=== PATIENT | female | born 1970 | race Caucasian/White ===

== ENCOUNTER 2022-08-14 05:59 | Inpatient (IN) | payer MEDICAID ==
[~2022-08-14] VITALS: Ht 154.9 cm; Wt 79.2 kg
[2022-08-14 06:02] VITALS: BP_SYST 85
[2022-08-14] MEDS ORDERED: NACL 0.9% 2,000 ML IV ONE (07:15)
[2022-08-14] MEDS ORDERED: KETOROLAC TROMETHAMINE 30 MG VIAL IVP ONE (07:15)
[2022-08-14 10:10] LABS: HEMATOCRIT 36.1 % (36-48); HEMOGLOBIN 12.1 g/dL (12.0-16.0); MEAN CORPUSCULAR HEMOGLOBIN 30 pg (27-31); MEAN CORPUSCULAR HGB CONC 33 % (32-36); MEAN CORPUSCULAR VOLUME 89 fL (79.0-98.0); PLATELET COUNT (AUTO) 250 K/uL (130-430); RED BLOOD CELL COUNT(AUTO) 4.06 MIL/uL (4.2-6.2); RED CELL DISTRIBUTION WIDTH 14.2 % (9.0-15.0); WHITE BLOOD COUNT (AUTO) 18.9 K/uL (4.8-10.8)
[2022-08-14] MEDS ORDERED: cefTRIAXone 1 GM IVPB PREMIX 50 ML IV ONE (10:30)
[2022-08-14 10:32] LABS: CALCIUM 7.3 mg/dL (8.4-11.0); CREATININE 0.87 mg/dL (0.55-1.30)
[2022-08-14 10:37] LABS: ALBUMIN 2.7 g/dL (3.4-4.8); TOTAL BILIRUBIN 0.6 mg/dL (0.0-1.0)
[2022-08-14 10:45] LABS: ATYPICAL LYMPHOCYTES % 0 % (0-0); BAND % (MANUAL) 18 % (0-6); BASOPHILS % (MANUAL) 0 % (0-2); EOSINOPHILS % (MANUAL) 0 % (0-7); LYMPHOCYTES % (MANUAL) 5 % (20-46); MONOCYTES % (MANUAL) 2 % (0-11)
[2022-08-14] MEDS ORDERED: traMADol HCL HCL 50 MG TABLET (ULTRAM) PO ONE (10:45)
[2022-08-14] MEDS ORDERED: ALBMDI INH (12:57)
[2022-08-14] MEDS ORDERED: MONT10TA22 PO (12:57)
[2022-08-14] MEDS ORDERED: LEVO100C4 PO (12:57)
[2022-08-14] MEDS ORDERED: NACL 0.9% 1,000 ML IV ONE ×2 (13:15→19:45)
[2022-08-14] MEDS ORDERED: GABA-531 PO (14:47)
[2022-08-14] MEDS ORDERED: DULO60CA42 PO (14:47)
[2022-08-14] MEDS ORDERED: SER25 PO (14:47)
[2022-08-14] MEDS ORDERED: CYM30 PO (14:47)
[2022-08-14] MEDS ORDERED: ACETAMINOPHEN 500 MG TABLET ONE (15:27)
[2022-08-14] MEDS ORDERED: ACETAMINOPHEN 500 MG TABLET PO ONE ×2 (15:45→20:30)
[2022-08-14] MEDS ORDERED: AZITHROMYCIN 500 MG in NS 250 ML IV ONE (19:30)
[2022-08-14] MEDS ORDERED: AZITHROMYCIN 500 MG/VIAL (ZITHROMAX) IV ONE (19:40)
[2022-08-14 21:50] VITALS: BP_SYST 82
[2022-08-14] MEDS: KCL 20 mEq in D5NS 1000 mL 1,000 ML IV SCH (22:43)
[2022-08-14 22:48] VITALS: BP_SYST 102
[2022-08-14 23:21] VITALS: BP_SYST 130
[2022-08-15] MEDS: LevALBUTEROL HCL 1.25 MG/0.5 ML *CONC.* VIAL.NEB (XOPENEX CONC.) INH SCH ×4 (01:00→20:18)
[2022-08-15 02:01] VITALS: BP_SYST 102
[2022-08-15 04:43] VITALS: BP_SYST 130
[2022-08-15] MEDS: ACETAMINOPHEN 500 MG TABLET PO ONE ×2 (06:30→09:01)
[2022-08-15 08:10] VITALS: BP_SYST 98
[2022-08-15 08:44] LABS: BASOPHILS % (AUTO) 0.2 % (0.0-2.0); EOSINOPHILS % (AUTO) 0.1 % (0.0-4.0); HEMATOCRIT 33.5 % (36-48); HEMOGLOBIN 11.1 g/dL (12.0-16.0); LYMPHOCYTES # (AUTO) 1.2 K/uL (1.0-5.5); LYMPHOCYTES % (AUTO) 8.8 % (20.5-51.5); MEAN CORPUSCULAR HEMOGLOBIN 30 pg (27-31); MEAN CORPUSCULAR HGB CONC 33 % (32-36); MEAN CORPUSCULAR VOLUME 89 fL (79.0-98.0); MONOCYTES # (AUTO) 0.3 K/uL (0.0-1.0); MONOCYTES % (AUTO) 1.9 % (1.7-9.3); NEUTROPHILS # (AUTO) 12.2 K/uL (1.8-7.7); PLATELET COUNT (AUTO) 241 K/uL (130-430); RED BLOOD CELL COUNT(AUTO) 3.77 MIL/uL (4.2-6.2); RED CELL DISTRIBUTION WIDTH 14.5 % (9.0-15.0); WHITE BLOOD COUNT (AUTO) 13.7 K/uL (4.8-10.8)
[2022-08-15] MEDS: cefTRIAXone 1 GM IVPB PREMIX 50 ML IV SCH (08:52)
[2022-08-15] MEDS: ENOXAPARIN SODIUM 40 MG/0.4 ML SYRINGE SUBCUT SCH (08:53)
[2022-08-15] MEDS: KCL 20 mEq in D5NS 1000 mL 1,000 ML IV SCH ×2 (09:03→17:40)
[2022-08-15 09:05] LABS: CALCIUM 7.8 mg/dL (8.4-11.0); CREATININE 0.77 mg/dL (0.55-1.30)
[2022-08-15 09:10] LABS: ALBUMIN 2.3 g/dL (3.4-4.8); TOTAL BILIRUBIN 0.4 mg/dL (0.0-1.0)
[2022-08-15] MEDS ORDERED: MONTELUKAST 10 MG TABLET PO ONE (11:00)
[2022-08-15] MEDS ORDERED: DULoxetine HCL 30 MG CAPSULE.DR (CYMBALTA) PO ONE (11:00)
[2022-08-15] MEDS ORDERED: QUEtiapine FUMARATE 25 MG TABLET PO ONE (11:00)
[2022-08-15] MEDS: SUMAtriptan SUCCINATE 50 MG TABLET PO PRN (12:12)
[2022-08-15 13:47] VITALS: BP_SYST 123
[2022-08-15] MEDS: GABAPENTIN 300 MG CAPSULE PO SCH ×2 (14:41→21:38)
[2022-08-15] MEDS ORDERED: GABAPENTIN 300 MG CAPSULE PO SCH (15:00)
[2022-08-15] MEDS: ACETAMINOPHEN 325 MG TABLET PO PRN ×2 (16:20→21:40)
[2022-08-15 16:36] VITALS: BP_SYST 138
[2022-08-15 20:00] VITALS: BP_SYST 91
[2022-08-15] MEDS ORDERED: AZITHROMYCIN 500 MG/VIAL (ZITHROMAX) IV ONE (21:28)
[2022-08-15] MEDS: AZITHROMYCIN 500 MG in NS 250 ML IV SCH (21:37)
[2022-08-15] MEDS: MONTELUKAST 10 MG TABLET PO SCH (21:38)
[2022-08-15] MEDS: QUEtiapine FUMARATE 25 MG TABLET PO SCH (21:38)
[2022-08-16 00:11] VITALS: BP_SYST 130
[2022-08-16] MEDS: KCL 20 mEq in D5NS 1000 mL 1,000 ML IV SCH ×2 (03:56→17:50)
[2022-08-16] MEDS: LEVOTHYROXINE SODIUM 0.1 MG TABLET PO SCH (06:14)
[2022-08-16] MEDS: ACETAMINOPHEN 325 MG TABLET PO PRN ×2 (06:28→11:30)
[2022-08-16 06:49] LABS: CALCIUM 7.9 mg/dL (8.4-11.0); CREATININE 0.68 mg/dL (0.55-1.30)
[2022-08-16 06:53] LABS: BASOPHILS % (AUTO) 0.4 % (0.0-2.0); EOSINOPHILS # (AUTO) 0.1 K/uL (0.0-0.4); HEMATOCRIT 31.9 % (36-48); HEMOGLOBIN 10.8 g/dL (12.0-16.0); LYMPHOCYTES % (AUTO) 14.1 % (20.5-51.5); MEAN CORPUSCULAR HEMOGLOBIN 30 pg (27-31); MEAN CORPUSCULAR HGB CONC 34 % (32-36); MEAN CORPUSCULAR VOLUME 89 fL (79.0-98.0); MONOCYTES # (AUTO) 0.3 K/uL (0.0-1.0); MONOCYTES % (AUTO) 4.6 % (1.7-9.3); NEUTROPHILS # (AUTO) 5.5 K/uL (1.8-7.7); NEUTROPHILS % (AUTO) 78.9 % (40.0-70.0); PLATELET COUNT (AUTO) 232 K/uL (130-430); RED BLOOD CELL COUNT(AUTO) 3.59 MIL/uL (4.2-6.2); RED CELL DISTRIBUTION WIDTH 14.8 % (9.0-15.0); WHITE BLOOD COUNT (AUTO) 6.9 K/uL (4.8-10.8)
[2022-08-16] MEDS: LevALBUTEROL HCL 1.25 MG/0.5 ML *CONC.* VIAL.NEB (XOPENEX CONC.) INH SCH ×3 (07:00→21:18)
[2022-08-16 08:05] VITALS: BP_SYST 103
[2022-08-16] MEDS: cefTRIAXone 1 GM IVPB PREMIX 50 ML IV SCH (08:31)
[2022-08-16] MEDS: ENOXAPARIN SODIUM 40 MG/0.4 ML SYRINGE SUBCUT SCH (08:32)
[2022-08-16] MEDS: GABAPENTIN 300 MG CAPSULE PO SCH ×3 (08:32→21:37)
[2022-08-16] MEDS: DULoxetine HCL 30 MG CAPSULE.DR (CYMBALTA) PO SCH (08:32)
[2022-08-16] MEDS ORDERED: QUEtiapine FUMARATE 25 MG TABLET PO SCH (09:00)
[2022-08-16] MEDS ORDERED: LEVOTHYROXINE SODIUM 0.1 MG TABLET PO SCH (09:00)
[2022-08-16] MEDS ORDERED: MONTELUKAST 10 MG TABLET PO SCH (09:00)
[2022-08-16 11:53] VITALS: BP_SYST 110
[2022-08-16] MEDS: SUMAtriptan SUCCINATE 50 MG TABLET PO PRN (12:59)
[2022-08-16 15:41] VITALS: BP_SYST 93
[2022-08-16] MEDS ORDERED: FLUTICASONE 500 mCg/SALMETEROL 50 mCg DISKUS W.DEV INH SCH (17:30)
[2022-08-16] MEDS ORDERED: NICOTINE 21 MG/24 HR PATCH.TD24 TD ONE (18:15)
[2022-08-16] MEDS ORDERED: NAPROXEN 250 MG TABLET PO ONE (18:15)
[2022-08-16 18:40] VITALS: BP_SYST 110
[2022-08-16 20:00] VITALS: BP_SYST 94
[2022-08-16] MEDS: BUDESONIDE 0.5 MG/2 ML AMPUL.NEB INH SCH (21:17)
[2022-08-16] MEDS: AZITHROMYCIN 500 MG in NS 250 ML IV SCH (21:37)
[2022-08-16] MEDS: MONTELUKAST 10 MG TABLET PO SCH (21:37)
[2022-08-16] MEDS: QUEtiapine FUMARATE 25 MG TABLET PO SCH (21:38)
[2022-08-17] VITALS: BP_SYST 100
[2022-08-17] MEDS: LevALBUTEROL HCL 1.25 MG/0.5 ML *CONC.* VIAL.NEB (XOPENEX CONC.) INH SCH ×4 (01:00→19:51)
[2022-08-17] MEDS: LEVOTHYROXINE SODIUM 0.1 MG TABLET PO SCH (06:01)
[2022-08-17] MEDS: KCL 20 mEq in D5NS 1000 mL 1,000 ML IV SCH ×3 (06:02→22:33)
[2022-08-17 07:06] LABS: EOSINOPHILS # (AUTO) 0.2 K/uL (0.0-0.4); HEMATOCRIT 31.7 % (36-48); HEMOGLOBIN 10.6 g/dL (12.0-16.0); LYMPHOCYTES # (AUTO) 1.3 K/uL (1.0-5.5); LYMPHOCYTES % (AUTO) 27.8 % (20.5-51.5); MEAN CORPUSCULAR HEMOGLOBIN 30 pg (27-31); MEAN CORPUSCULAR HGB CONC 34 % (32-36); MEAN CORPUSCULAR VOLUME 89 fL (79.0-98.0); MONOCYTES # (AUTO) 0.4 K/uL (0.0-1.0); MONOCYTES % (AUTO) 8.1 % (1.7-9.3); NEUTROPHILS # (AUTO) 2.7 K/uL (1.8-7.7); NEUTROPHILS % (AUTO) 59.1 % (40.0-70.0); PLATELET COUNT (AUTO) 255 K/uL (130-430); RED BLOOD CELL COUNT(AUTO) 3.55 MIL/uL (4.2-6.2); RED CELL DISTRIBUTION WIDTH 14.7 % (9.0-15.0)
[2022-08-17 07:24] LABS: CREATININE 0.59 mg/dL (0.55-1.30)
[2022-08-17 08:18] LABS: WHITE BLOOD COUNT (AUTO) 4.6 K/uL (4.8-10.8)
[2022-08-17] MEDS: BUDESONIDE 0.5 MG/2 ML AMPUL.NEB INH SCH ×2 (08:49→19:52)
[2022-08-17 08:59] VITALS: BP_SYST 100
[2022-08-17] MEDS: cefTRIAXone 1 GM IVPB PREMIX 50 ML IV SCH (09:00)
[2022-08-17] MEDS: GABAPENTIN 300 MG CAPSULE PO SCH ×3 (09:58→22:20)
[2022-08-17] MEDS: NAPROXEN 250 MG TABLET PO SCH ×2 (09:58→17:55)
[2022-08-17] MEDS: DULoxetine HCL 30 MG CAPSULE.DR (CYMBALTA) PO SCH (09:59)
[2022-08-17] MEDS: ENOXAPARIN SODIUM 40 MG/0.4 ML SYRINGE SUBCUT SCH (09:59)
[2022-08-17] MEDS: NICOTINE 21 MG/24 HR PATCH.TD24 TD SCH (09:59)
[2022-08-17 12:00] VITALS: BP_SYST 115
[2022-08-17 15:30] VITALS: BP_SYST 107
[2022-08-17 20:00] VITALS: BP_SYST 107
[2022-08-17 22:20] VITALS: BP_SYST 102
[2022-08-17] MEDS: MONTELUKAST 10 MG TABLET PO SCH (22:20)
[2022-08-17] MEDS: QUEtiapine FUMARATE 25 MG TABLET PO SCH (22:20)
[2022-08-17] MEDS: AZITHROMYCIN 500 MG in NS 250 ML IV SCH (22:34)
[2022-08-18] VITALS: BP_SYST 102
[2022-08-18] MEDS: LevALBUTEROL HCL 1.25 MG/0.5 ML *CONC.* VIAL.NEB (XOPENEX CONC.) INH SCH ×4 (01:00→19:50)
[2022-08-18] MEDS: LEVOTHYROXINE SODIUM 0.1 MG TABLET PO SCH (06:14)
[2022-08-18] MEDS: KCL 20 mEq in D5NS 1000 mL 1,000 ML IV SCH ×2 (07:00→15:15)
[2022-08-18] MEDS: BUDESONIDE 0.5 MG/2 ML AMPUL.NEB INH SCH ×2 (07:27→19:50)
[2022-08-18 08:00] VITALS: BP_SYST 98
[2022-08-18 08:37] VITALS: BP_SYST 102
[2022-08-18] MEDS: ENOXAPARIN SODIUM 40 MG/0.4 ML SYRINGE SUBCUT SCH (08:42)
[2022-08-18] MEDS: DULoxetine HCL 30 MG CAPSULE.DR (CYMBALTA) PO SCH (08:42)
[2022-08-18] MEDS: NAPROXEN 250 MG TABLET PO SCH ×2 (08:43→22:05)
[2022-08-18] MEDS: NICOTINE 21 MG/24 HR PATCH.TD24 TD SCH (08:43)
[2022-08-18] MEDS: GABAPENTIN 300 MG CAPSULE PO SCH ×3 (08:43→22:05)
[2022-08-18] MEDS: cefTRIAXone 1 GM IVPB PREMIX 50 ML IV SCH (08:44)
[2022-08-18 12:00] VITALS: BP_SYST 117
[2022-08-18 16:00] VITALS: BP_SYST 108
[2022-08-18 20:00] VITALS: BP_SYST 101
[2022-08-18] MEDS: MONTELUKAST 10 MG TABLET PO SCH (22:05)
[2022-08-18] MEDS: QUEtiapine FUMARATE 25 MG TABLET PO SCH (22:05)
[2022-08-18] MEDS: AZITHROMYCIN 500 MG in NS 250 ML IV SCH (22:06)
[2022-08-19 01:00] VITALS: BP_SYST 125
[2022-08-19] MEDS: LevALBUTEROL HCL 1.25 MG/0.5 ML *CONC.* VIAL.NEB (XOPENEX CONC.) INH SCH ×3 (07:00→19:51)
[2022-08-19 08:00] VITALS: BP_SYST 100
[2022-08-19] MEDS: BUDESONIDE 0.5 MG/2 ML AMPUL.NEB INH SCH ×2 (08:04→21:00)
[2022-08-19] MEDS: NAPROXEN 250 MG TABLET PO SCH ×2 (09:00→17:31)
[2022-08-19] MEDS: DULoxetine HCL 30 MG CAPSULE.DR (CYMBALTA) PO SCH (09:44)
[2022-08-19] MEDS: GABAPENTIN 300 MG CAPSULE PO SCH ×3 (09:44→22:17)
[2022-08-19] MEDS: cefTRIAXone 1 GM IVPB PREMIX 50 ML IV SCH (09:46)
[2022-08-19] MEDS: LEVOTHYROXINE SODIUM 0.1 MG TABLET PO SCH (09:47)
[2022-08-19] MEDS: NICOTINE 21 MG/24 HR PATCH.TD24 TD SCH (09:48)
[2022-08-19] MEDS: ENOXAPARIN SODIUM 40 MG/0.4 ML SYRINGE SUBCUT SCH (09:48)
[2022-08-19 12:00] VITALS: BP_SYST 121
[2022-08-19 16:00] VITALS: BP_SYST 111
[2022-08-19 20:00] VITALS: BP_SYST 101
[2022-08-19] MEDS: MONTELUKAST 10 MG TABLET PO SCH (22:17)
[2022-08-19] MEDS: QUEtiapine FUMARATE 25 MG TABLET PO SCH (22:17)
[2022-08-19] MEDS: AZITHROMYCIN 500 MG in NS 250 ML IV SCH (22:19)
[2022-08-20] MEDS: LevALBUTEROL HCL 1.25 MG/0.5 ML *CONC.* VIAL.NEB (XOPENEX CONC.) INH SCH ×3 (01:00→13:55)
[2022-08-20 01:30] VITALS: BP_SYST 106
[2022-08-20] MEDS: LEVOTHYROXINE SODIUM 0.1 MG TABLET PO SCH (05:48)
[2022-08-20 07:27] LABS: BASOPHILS % (AUTO) 0.8 % (0.0-2.0); EOSINOPHILS # (AUTO) 0.2 K/uL (0.0-0.4); EOSINOPHILS % (AUTO) 3.3 % (0.0-4.0); HEMATOCRIT 34.2 % (36-48); HEMOGLOBIN 11.6 g/dL (12.0-16.0); LYMPHOCYTES # (AUTO) 1.7 K/uL (1.0-5.5); LYMPHOCYTES % (AUTO) 33.5 % (20.5-51.5); MEAN CORPUSCULAR HEMOGLOBIN 30 pg (27-31); MEAN CORPUSCULAR HGB CONC 34 % (32-36); MEAN CORPUSCULAR VOLUME 88 fL (79.0-98.0); MONOCYTES # (AUTO) 0.6 K/uL (0.0-1.0); NEUTROPHILS # (AUTO) 2.6 K/uL (1.8-7.7); NEUTROPHILS % (AUTO) 51.4 % (40.0-70.0); PLATELET COUNT (AUTO) 366 K/uL (130-430); RED BLOOD CELL COUNT(AUTO) 3.91 MIL/uL (4.2-6.2); RED CELL DISTRIBUTION WIDTH 14.8 % (9.0-15.0); WHITE BLOOD COUNT (AUTO) 5.1 K/uL (4.8-10.8)
[2022-08-20] MEDS: BUDESONIDE 0.5 MG/2 ML AMPUL.NEB INH SCH (07:38)
[2022-08-20 08:00] VITALS: BP_SYST 103
[2022-08-20 08:24] LABS: CALCIUM 8.6 mg/dL (8.4-11.0); CREATININE 0.79 mg/dL (0.55-1.30)
[2022-08-20] MEDS: ENOXAPARIN SODIUM 40 MG/0.4 ML SYRINGE SUBCUT SCH (09:22)
[2022-08-20] MEDS: NICOTINE 21 MG/24 HR PATCH.TD24 TD SCH (09:22)
[2022-08-20] MEDS: DULoxetine HCL 30 MG CAPSULE.DR (CYMBALTA) PO SCH (09:22)
[2022-08-20] MEDS: GABAPENTIN 300 MG CAPSULE PO SCH (09:23)
[2022-08-20] MEDS: cefTRIAXone 1 GM IVPB PREMIX 50 ML IV SCH (09:23)
[2022-08-20] MEDS: NAPROXEN 250 MG TABLET PO SCH (09:23)
[2022-08-20] MEDS: SUMAtriptan SUCCINATE 50 MG TABLET PO PRN (09:36)
[2022-08-20 11:58] VITALS: BP_SYST 112
[2022-08-20 13:46] VITALS: BP_SYST 103
== END 2022-08-20 14:10 | disposition home or self-care (01) | DRG 139 ==
LOC: SED 05:59 → STU 21:06 → SMU 08-18 05:43
PROVIDERS: ADMIT Family Medicine; ATTEND Family Medicine
DX: J18.9 Pneumonia, unspecified organism (principal); E43 Unspecified severe protein-calorie malnutrition; E83.51 Hypocalcemia; J44.0 Chronic obstructive pulmonary disease with (acute) lower respiratory infection; J44.1 Chronic obstructive pulmonary disease with (acute) exacerbation; G43.909 Migraine, unspecified, not intractable, without status migrainosus; Z20.822 Contact with and (suspected) exposure to COVID-19; F31.9 Bipolar disorder, unspecified; E03.9 Hypothyroidism, unspecified; Z88.2 Allergy status to sulfonamides; Z88.8 Allergy status to other drugs, medicaments and biological substances; Z79.899 Other long term (current) drug therapy; Z87.891 Personal history of nicotine dependence; Z90.49 Acquired absence of other specified parts of digestive tract
CPT/HCPCS: 36415; 71045; 71250-TC; 76376; 80048; 80053; 83605; 85007; 85025; 85027; 87040; 94640; 94760; 96365; 96367; 96375; 99291; G0378; J0456; J0696; J1650; J1885; J7030; J7050; J7612; J7626

== ENCOUNTER 2023-11-02 01:02 | Emergency (ER) | payer MEDICAID ==
[~2023-11-02] VITALS: Ht 154.9 cm; Wt 74.4 kg
[~2023-11-02 01:02] MED LIST: ALBMDI INH; CYM30 PO; DULO60CA42 PO; GABA-531 PO; LEVO100C4 PO; MONT-47 PO; SER25 PO
[2023-11-02 01:12] VITALS: BP_SYST 105; PULSE 97; RESP 16; TEMP 97.1; O2SAT 99
[2023-11-02 02:03] LABS: BASOPHILS # (AUTO) 0.1 K/uL (0.0-0.2); BASOPHILS % (AUTO) 0.9 % (0.0-2.0); EOSINOPHILS # (AUTO) 0.2 K/uL (0.0-0.4); EOSINOPHILS % (AUTO) 2.2 % (0.0-4.0); HEMATOCRIT 38.7 % (36-48); HEMOGLOBIN 12.9 g/dL (12.0-16.0); LYMPHOCYTES # (AUTO) 2.3 K/uL (1.0-5.5); LYMPHOCYTES % (AUTO) 24.3 % (20.5-51.5); MEAN CORPUSCULAR HEMOGLOBIN 30 pg (27-31); MEAN CORPUSCULAR HGB CONC 33 % (32-36); MEAN CORPUSCULAR VOLUME 91 fL (79.0-98.0); MONOCYTES # (AUTO) 0.8 K/uL (0.0-1.0); NEUTROPHILS # (AUTO) 6.1 K/uL (1.8-7.7); NEUTROPHILS % (AUTO) 64.6 % (40.0-70.0); PLATELET COUNT (AUTO) 301 K/uL (130-430); RED BLOOD CELL COUNT(AUTO) 4.28 MIL/uL (4.2-6.2); RED CELL DISTRIBUTION WIDTH 13.9 % (9.0-15.0); WHITE BLOOD COUNT (AUTO) 9.4 K/uL (4.8-10.8)
[2023-11-02 02:21] LABS: ANION GAP 8 (5-15); CALCIUM 8.4 mg/dL (8.4-11.0); CARBON DIOXIDE 28 mmol/L (23-29); CHLORIDE 108 mmol/L (98-107); CREATININE 0.82 mg/dL (0.55-1.30); GFR AFRICAN AMERICAN 93 mL/min (>90); GLUCOSE 117 mg/dL (74-106); SODIUM SERUM 144 mmol/L (136-145); UREA NITROGEN, BLOOD 13 mg/dL (8-21)
[2023-11-02 02:23] LABS: GFR NON AFRICAN-AMERICAN 77 mL/min (>90)
[2023-11-02] MEDS: IBUPROFEN 600 MG TABLET PO ONE (04:23)
[2023-11-02 04:56] VITALS: BP_SYST 103; PULSE 80; RESP 16; TEMP 98.6; O2SAT 95
== END 2023-11-02 04:56 | disposition home or self-care (01) ==
LOC: SED 01:02
DX: R07.89 Other chest pain (principal); J45.909 Unspecified asthma, uncomplicated; F17.200 Nicotine dependence, unspecified, uncomplicated; Z79.899 Other long term (current) drug therapy
CPT/HCPCS: 36415; 71045; 80048; 83880; 84484; 85025; 93005; 99285

== ENCOUNTER 2023-12-12 17:14 | Emergency (ER) | payer MEDICAID ==
[~2023-12-12] VITALS: Ht 157.5 cm; Wt 74.4 kg
[2023-12-12 17:21] VITALS: BP_SYST 118; PULSE 103; RESP 18; TEMP 98.3; O2SAT 97
[2023-12-12] MEDS: KETOROLAC TROMETHAMINE 60 MG/2 ML VIAL IM ONE (18:36)
[2023-12-12] MEDS: HYDROcodone/ACETAMIN 5-325 MG TAB (NORCO/ VICODIN) PO ONE (18:39)
[2023-12-12] MEDS ORDERED: HYDR-3917 PO (19:08)
[2023-12-12] MEDS ORDERED: IBUP-1969 PO (19:08)
== END 2023-12-12 19:32 | disposition home or self-care (01) ==
LOC: SED 17:14
DX: S83.91XA Sprain of unspecified site of right knee, initial encounter (principal); S93.401A Sprain of unspecified ligament of right ankle, initial encounter; S89.92XA Unspecified injury of left lower leg, initial encounter; J45.909 Unspecified asthma, uncomplicated; Z88.2 Allergy status to sulfonamides; Z88.5 Allergy status to narcotic agent; Z79.899 Other long term (current) drug therapy; V89.2XXA Person injured in unspecified motor-vehicle accident, traffic, initial encounter; Y93.89 Activity, other specified; Y92.89 Other specified places as the place of occurrence of the external cause; Y99.8 Other external cause status
CPT/HCPCS: 99284; 73564; 73590; 73610; 96372; J1885